=== PATIENT | male | born 1990 | race Caucasian/White ===

== ENCOUNTER 2022-02-07 14:20 | Emergency (ER) | payer BC ==
[2022-02-07 14:56] LABS: #Basophils 0.1 thou/uL (0.0-0.2); #Eosinphils 0.2 thou/uL (0.0-0.7); #Lymphocytes 3.3 thou/uL (1.20-3.40); #Monocytes 0.6 thou/uL (0.11-0.59); #Neutrophils 5.6 thou/uL (1.40-6.50); %Basophils 0.8 % (0.0-1.0); %Eosinophils 1.6 % (0.0-10.0); %Lymphocytes 33.9 % (21.0-51.0); %Monocytes 5.8 % (0.0-10.0); Mean Corpuscular HGB CONC 32.6 g/dL (32.0-36.0); Mean Corpuscular Hemoglobin 30.7 pg (27.0-31.0); Mean Corpuscular Volume 94.2 fL (78.0-98.0); Mean Platelet Volume 7.2 fL (7.4-10.4); Platelet Count 255 thou/uL (130-400); RBC Distribution Width 11.4 % (11.5-14.5); Red Blood Cell (RBC) Count 5.22 mill/uL (4.70-6.10); White Blood Cell (WBC) Count 9.6 thou/uL (4.8-10.8)
[2022-02-07 15:17] LABS: ALT (SGPT) 20 U/L (8-55); AST (SGOT) 16 U/L (5-34); Albumin 4.3 g/dL (3.5-5.0); Alkaline Phosphatase 106 U/L (40-110); Anion Gap 12 mmol/L (10-20); BUN (Urea Nitrogen) 12 mg/dL (8.9-20.6); Bilirubin, Total 0.6 mg/dL (0.2-1.2); Calc. Creatinine Clearance 0 mL/min (70-130); Calcium 9.5 mg/dL (7.8-10.44); Carbon Dioxide 25 mmol/L (22-29); Chloride 106 mmol/L (98-107); Estimated GFR 119; Glucose 84 mg/dL (70-105); Lipase 19 U/L (8-78); Potassium 4.4 mmol/L (3.5-5.1); Protein, Total 7.3 g/dL (6.0-8.3); Sodium 139 mmol/L (136-145)
== END 2022-02-07 19:29 | disposition home or self-care (01) ==
LOC: ERS 14:20
DX: R07.81 Pleurodynia (principal); I49.8 Other specified cardiac arrhythmias; F17.290 Nicotine dependence, other tobacco product, uncomplicated
CPT/HCPCS: 36415; 71045; 80053; 83690; 84484; 85025; 85379; 93005; 94760

== ENCOUNTER 2022-07-08 12:08 | Inpatient (IN) | payer BC ==
[~2022-07-08 12:08] MED LIST: Magnevist 469MG/ML 20 ML VIAL ONE
[2022-07-08] MEDS ORDERED: levETIRAcetam 500 MG/5 ML VIAL ONE ×2 (13:28)
[2022-07-08 13:39] LABS: #Basophils 0.1 thou/uL (0.0-0.2); #Eosinphils 0.1 thou/uL (0.0-0.7); #Lymphocytes 2.6 thou/uL (1.20-3.40); #Monocytes 0.6 thou/uL (0.11-0.59); #Neutrophils 2.3 thou/uL (1.40-6.50); %Basophils 1.1 % (0.0-1.0); %Eosinophils 1.3 % (0.0-10.0); %Lymphocytes 45.9 % (21.0-51.0); %Monocytes 10.9 % (0.0-10.0); %Neutrophils 40.9 % (42.0-75.0); Hemoglobin 16.1 g/dL (14.0-18.0); Mean Corpuscular HGB CONC 32.9 g/dL (32.0-36.0); Mean Corpuscular Hemoglobin 30.7 pg (27.0-31.0); Mean Corpuscular Volume 93.3 fl (78.0-98.0); Mean Platelet Volume 7.8 fL (7.4-10.4); Platelet Count 222 10x3/uL (130-400); RBC Distribution Width 11.6 % (11.5-14.5); Red Blood Cell (RBC) Count 5.25 mill/uL (4.70-6.10); White Blood Cell (WBC) Count 5.6 10x3/uL (4.8-10.8)
[2022-07-08 14:02] LABS: ALT (SGPT) 25 U/L (8-55); AST (SGOT) 21 U/L (5-34); Albumin 4.4 g/dL (3.5-5.0); Alkaline Phosphatase 84 U/L (40-110); Anion Gap 12 mmol/L (10-20); BUN (Urea Nitrogen) 12 mg/dL (8.9-20.6); Bilirubin, Total 0.5 mg/dL (0.2-1.2); Calc. Creatinine Clearance 0 mL/min (70-130); Calcium 9.3 mg/dL (7.8-10.44); Carbon Dioxide 25 mmol/L (22-29); Chloride 107 mmol/L (98-107); Estimated GFR 119; Globulin 3.5 g/dL (2.4-3.5); Glucose 87 mg/dL (70-105); Potassium 4.3 mmol/L (3.5-5.1); Protein, Total 7.9 g/dL (6.0-8.3); Sodium 140 mmol/L (136-145)
[2022-07-08] MEDS ORDERED: Acetaminophen 325 MG TAB PO PRN (16:12)
[2022-07-08 17:43] LABS: SARS-CoV-2 NAA Rapid Test Not Detected (NotDetected)
[2022-07-08 18:27] LABS: SARS-CoV-2 NAA Rapid Test Not Detected (NotDetected)
[2022-07-08 18:54] LABS: Bilirubin Negative (Negative); Blood, Urine Negative (Negative); Clarity Clear (Clear); Glucose, Urine (Dipstick) Normal (Negative); Ketone, Urine Negative (Negative); Leukocyte 250 Leu/uL (Negative); Nitrite Negative (Negative); Protein, Urine (Dipstick) 20 mg/dL (Neg-Trace); RBC/HPF 0-3 HPF (0-3); Specific Gravity, Urine 1.032 (1.002-1.036); Squamous Epithelial None Seen HPF (0-3); Urobilinogen Normal mg/dL (Less than 2); WBC/HPF 21-50 HPF (0-3)
[2022-07-08 18:58] LABS: Mucous/LPF 1+ LPF (<2+); Renal Epithelial 0-3 HPF (None Seen)
[2022-07-08 19:00] LABS: Bacteria/HPF 1+ HPF (None Seen)
[2022-07-08 19:02] LABS: Amphetamine Not Detected (NotDetected); Barbiturates Screen Not Detected (NotDetected); Benzodiazepine Screen Not Detected (NotDetected); Cocaine Metabolite Screen Not Detected (NotDetected); Methadone Not Detected (NotDetected); Methamphetamine Not Detected (NotDetected); Opiate Screen Not Detected (NotDetected); Oxycodone Screen Not Detected (NotDetected); Phencyclidine (PCP) Not Detected (NotDetected); THC/Cannabinoid Screen Detected (NotDetected); Tricyclic Screen Not Detected (NotDetected)
[2022-07-08 20:11] VITALS: BMI 34.0
[2022-07-08] MEDS: levETIRAcetam 500 MG/5 ML VIAL SLOW IVP SCH (21:09)
[2022-07-09 07:35] VITALS: BP 107/63
[2022-07-09] MEDS ORDERED: levETIRAcetam 500 MG/5 ML VIAL ONE ×2 (09:21→09:44)
[2022-07-09 09:33] LABS: Anion Gap 13 mmol/L (10-20); BUN (Urea Nitrogen) 16 mg/dL (8.9-20.6); Calc. Creatinine Clearance 180 mL/min (70-130); Calcium 9.3 mg/dL (7.8-10.44); Carbon Dioxide 26 mmol/L (22-29); Chloride 107 mmol/L (98-107); Estimated GFR 119; Glucose 62 mg/dL (70-105); Potassium 4.1 mmol/L (3.5-5.1); Sodium 142 mmol/L (136-145)
[2022-07-09] MEDS: levETIRAcetam 500 MG/5 ML VIAL SLOW IVP SCH (09:44)
[2022-07-09 10:22] LABS: Hemoglobin 15.2 g/dL (14.0-18.0); Mean Corpuscular HGB CONC 33.4 g/dL (32.0-36.0); Mean Corpuscular Volume 92.8 fl (78.0-98.0); Mean Platelet Volume 7.8 fL (7.4-10.4); Platelet Count 219 10x3/uL (130-400); RBC Distribution Width 11.4 % (11.5-14.5)
[2022-07-09 10:51] LABS: Band 1 % (5-11); Lymphocytes 62 % (21-51); MDiff Complete? YES; Monocytes 10 % (0-10); Neutrophil 26 % (42-75); Platelet Morphology Comment Appears Adequate; RBC Morphology Normal
[2022-07-09 12:31] VITALS: TEMP 98.5
== END 2022-07-09 14:59 | disposition home or self-care (01) | DRG 101 ==
LOC: ERS 12:08 → ERHOLD 14:59
PROVIDERS: ADMIT Internal Medicine; ATTEND Internal Medicine
DX: G40.909 Epilepsy, unspecified, not intractable, without status epilepticus (principal); G37.8 Other specified demyelinating diseases of central nervous system; Z20.822 Contact with and (suspected) exposure to COVID-19; R90.89 Other abnormal findings on diagnostic imaging of central nervous system; Z82.49 Family history of ischemic heart disease and other diseases of the circulatory system
CPT/HCPCS: 36415; 70450; 70553; 80048; 80053; 80306; 81003; 81015; 84146; 85025; 95712; 95819; 95957; 96374; A9579; J1953; U0002

== ENCOUNTER 2022-08-28 23:56 | Emergency (ER) | payer BC ==
[2022-08-29 00:54] LABS: #Basophils 0.1 thou/uL (0.0-0.2); #Eosinphils 0.3 thou/uL (0.0-0.7); #Lymphocytes 4.8 thou/uL (1.20-3.40); #Monocytes 0.8 thou/uL (0.11-0.59); #Neutrophils 4.7 thou/uL (1.40-6.50); %Basophils 0.7 % (0.0-1.0); %Eosinophils 2.6 % (0.0-10.0); %Lymphocytes 44.9 % (21.0-51.0); %Monocytes 7.2 % (0.0-10.0); %Neutrophils 44.5 % (42.0-75.0); Hemoglobin 16.3 g/dL (14.0-18.0); Mean Corpuscular HGB CONC 33.8 g/dL (32.0-36.0); Mean Corpuscular Hemoglobin 30.8 pg (27.0-31.0); Mean Platelet Volume 7.8 fL (7.4-10.4); Platelet Count 252 10x3/uL (130-400); RBC Distribution Width 11.7 % (11.5-14.5); Red Blood Cell (RBC) Count 5.31 mill/uL (4.70-6.10); White Blood Cell (WBC) Count 10.6 10x3/uL (4.8-10.8)
[2022-08-29 01:13] LABS: Albumin 4.4 g/dL (3.5-5.0); Anion Gap 15 mmol/L (10-20); BUN (Urea Nitrogen) 16 mg/dL (8.9-20.6); Bilirubin, Total 0.5 mg/dL (0.2-1.2); Calc. Creatinine Clearance 0 mL/min (70-130); Calcium 9.8 mg/dL (7.8-10.44); Carbon Dioxide 24 mmol/L (22-29); Chloride 106 mmol/L (98-107); Estimated GFR 100; Globulin 3.4 g/dL (2.4-3.5); Glucose 73 mg/dL (70-105); Potassium 4.5 mmol/L (3.5-5.1); Protein, Total 7.8 g/dL (6.0-8.3); Sodium 140 mmol/L (136-145)
[2022-08-29 01:14] LABS: ALT (SGPT) 23 U/L (8-55); AST (SGOT) 16 U/L (5-34); Alkaline Phosphatase 91 U/L (40-110); CK (CPK) 235 U/L (30-200)
[2022-08-29] MEDS ORDERED: levETIRAcetam 500 MG/5 ML VIAL ONE (02:50)
[2022-08-29 02:51] LABS: Bacteria/HPF None Seen HPF (None Seen); Bilirubin Negative (Negative); Blood, Urine Negative (Negative); Clarity Clear (Clear); Glucose, Urine (Dipstick) Normal (Negative); Ketone, Urine Negative (Negative); Leukocyte 75 Leu/uL (Negative); Nitrite Negative (Negative); Protein, Urine (Dipstick) 10 mg/dL (Neg-Trace); RBC/HPF 0-3 HPF (0-3); Specific Gravity, Urine 1.032 (1.002-1.036); Squamous Epithelial 0-3 HPF (0-3); WBC/HPF Greater than 50 HPF (0-3); pH, Urine 6.5 (5.0-9.0)
[2022-08-29 12:12] LABS: Chlam.trachomatis by PCR,Urine DETECTED (NotDetected)
== END 2022-08-29 03:20 | disposition home or self-care (01) ==
LOC: ERS 23:56
DX: G40.909 Epilepsy, unspecified, not intractable, without status epilepticus (principal); R30.0 Dysuria; G23.8 Other specified degenerative diseases of basal ganglia; F17.290 Nicotine dependence, other tobacco product, uncomplicated
CPT/HCPCS: 36415; 70450; 80053; 81003; 81015; 82550; 84146; 85025; 87086; 87491; 87591; 93005; 96365; J1953

== ENCOUNTER 2023-06-19 17:30 | Emergency (ER) | payer BC, SELFPAY ==
[~2023-06-19 17:30] MED LIST changes: +Iopamidol-370 76% 500 ML MDV (1 ML CHARGE) ONE; -Magnevist 469MG/ML 20 ML VIAL ONE
[2023-06-19] MEDS ORDERED: Ketorolac Tromethamine 30 MG/ML VIAL ONE (17:49)
[2023-06-19] MEDS ORDERED: Ondansetron PF 4 MG/2 ML Vial ONE (17:49)
[2023-06-19 17:59] LABS: #Monocytes 0.7 thou/uL (0.11-0.59); #Neutrophils 13.2 thou/uL (1.40-6.50); %Basophils 0.2 % (0.0-1.0); %Lymphocytes 4.7 % (21.0-51.0); %Monocytes 4.7 % (0.0-10.0); %Neutrophils 89.9 % (42.0-75.0); Hematocrit 53.8 % (42.0-52.0); Hemoglobin 18.6 g/dL (14.0-18.0); Mean Corpuscular HGB CONC 34.6 g/dL (32.0-36.0); Mean Corpuscular Hemoglobin 30.5 pg (27.0-31.0); Mean Corpuscular Volume 88.2 fl (78.0-98.0); Mean Platelet Volume 9.9 fL (7.4-10.4); Platelet Count 292 10x3/uL (130-400); RBC Distribution Width 12.3 % (11.5-14.5); White Blood Cell (WBC) Count 14.7 10x3/uL (4.8-10.8)
[2023-06-19 18:32] LABS: ALT (SGPT) 26 U/L (8-55); AST (SGOT) 21 U/L (5-34); Albumin 5.6 g/dL (3.5-5.0); Alkaline Phosphatase 121 U/L (40-110); Anion Gap 20 mmol/L (10-20); BUN (Urea Nitrogen) 18 mg/dL (8.9-20.6); Bilirubin, Total 0.8 mg/dL (0.2-1.2); Calc. Creatinine Clearance 0 mL/min (70-130); Calcium 10.7 mg/dL (7.8-10.44); Carbon Dioxide 21 mmol/L (22-29); Chloride 103 mmol/L (98-107); Estimated GFR 85; Globulin 3.5 g/dL (2.4-3.5); Glucose 130 mg/dL (70-105); Lipase 11 U/L (8-78); Potassium 4.4 mmol/L (3.5-5.1); Protein, Total 9.1 g/dL (6.0-8.3); Sodium 140 mmol/L (136-145)
[2023-06-19] MEDS ORDERED: Morphine 4 MG/ML VIAL ONE (18:37)
== END 2023-06-19 20:42 | disposition home or self-care (01) ==
LOC: ERS 17:30
DX: F12.288 Cannabis dependence with other cannabis-induced disorder (principal); K52.9 Noninfective gastroenteritis and colitis, unspecified; F17.290 Nicotine dependence, other tobacco product, uncomplicated
CPT/HCPCS: 74177; 80053; 83690; 85025; 96361; 96374; 96375; J1885; J2270; J2405; Q9967

== ENCOUNTER 2024-05-27 10:19 | Emergency (ER) | payer BC, SELFPAY ==
[2024-05-27] MEDS ORDERED: Iopamidol-370 76% 500 ML MDV (1 ML CHARGE) ONE (10:34)
[2024-05-27] MEDS ORDERED: Haloperidol Lactate 5 MG/ML VIAL ONE (10:36)
[2024-05-27] MEDS ORDERED: Ketorolac Tromethamine 30 MG (1 mL) VIAL ONE (11:07)
[2024-05-27] MEDS ORDERED: Ondansetron PF 4 MG/2 ML Vial ONE (11:07)
[2024-05-27 11:37] LABS: #Basophils 0.06 10x3/uL (0.0-0.2); #Eosinophils Less than 0.03 10x3/uL (0.0-0.7); %Basophils 0.3 % (0.0-1.0); %Lymphocytes 2.5 % (21.0-51.0); %Monocytes 4.6 % (0.0-10.0); Hematocrit 50.5 % (42.0-52.0); Hemoglobin 17.9 g/dL (14.0-18.0); Mean Corpuscular HGB CONC 35.4 g/dL (32.0-36.0); Mean Corpuscular Hemoglobin 30.9 pg (27.0-31.0); Mean Corpuscular Volume 87.1 fL (78.0-98.0); Mean Platelet Volume 10.7 fL (7.4-10.4); Platelet Count 273 10x3/uL (130-400); RBC Distribution Width 12.1 % (11.5-14.5)
[2024-05-27 11:46] LABS: ALT (SGPT) 22 U/L (8-55); AST (SGOT) 17 U/L (5-34); Albumin 4.8 g/dL (3.5-5.0); Alkaline Phosphatase 95 U/L (40-110); Anion Gap 18 mmol/L (10-20); BUN (Urea Nitrogen) 17 mg/dL (8.9-20.6); Bilirubin, Total 1.6 mg/dL (0.2-1.2); Calc. Creatinine Clearance 0 mL/min (70-130); Calcium 10.6 mg/dL (7.8-10.44); Carbon Dioxide 22 mmol/L (22-29); Chloride 105 mmol/L (98-107); Estimated GFR 94; Globulin 3.9 g/dL (2.4-3.5); Glucose 133 mg/dL (70-105); Lipase 14 U/L (8-78); Magnesium 1.7 mg/dL (1.6-2.6); Potassium 4.2 mmol/L (3.5-5.1); Protein, Total 8.7 g/dL (6.0-8.3); Sodium 141 mmol/L (136-145)
[2024-05-27 13:56] LABS: Lactic Acid 1.95 mmol/L (0.5-2.2)
== END 2024-05-27 13:26 | disposition home or self-care (01) ==
LOC: ERS 10:19
DX: R11.2 Nausea with vomiting, unspecified (principal); F12.90 Cannabis use, unspecified, uncomplicated; E87.20 Acidosis, unspecified
CPT/HCPCS: 74177; 80053; 83605; 83690; 83735; 84145; 85025; 96361; 96372; 96374; 96375; J1630; J1885; J2405; Q9967